=== PATIENT | male | born 1955 | race Caucasian/White ===

== ENCOUNTER → 2022-03-08 | Outpatient (CLI) | payer BC ==
[~2022-03-08] MED LIST: ALPR0.5T6 PO; AMLO-186 PO; ASPI325T8 PO; ATOR40TA59 PO; BUDE10.22 IH; CHOL10004 PO; LISI20TA18 PO; METF500T16 PO
--- NOTE | 2022-03-08 11:32 | CARD ---
MR#: [id number] Date of Study: 03/08/2022 Ordering Physician: RANDY MANZANO, Referring Physician: RANDY MANZANO, Tech: Yeny Guidry [facility] APPROVED REPORT EXAM: Two-dimensional and M-mode echocardiogram with Doppler and color Doppler. Other Information Quality : AverageHR: 54bpm Rhythm : NSR INDICATION Dyspnea Chest Pain 2D DIMENSIONS RVDd2.5 (2.9-3.5cm)Left Atrium(2D)3.9 (1.6-4.0cm) IVSd1.2 (0.7-1.1cm)Aortic Root(2D)2.8 (2.0-3.7cm) LVDd4.3 (3.9-5.9cm)LVOT Diameter2.2 (1.8-2.4cm) PWd1.0 (0.7-1.1cm)LVDs3.0 (2.5-4.0cm) FS (%) 29.6 %SV46.2 ml LVEF(%)57.0 (>50%) Aortic Valve AoV Peak Santino.265.6cm/sAoV VTI64.0cm AO Peak GR.28.2mmHgLVOT Peak Santino.81.4cm/s AO Mean GR.14mmHgAVA (VMAX)1.19cm2 Mitral Valve MV E Gkkdvmrl29.9cm/sMV DECEL [id number] MV A Rfdkowmt00.1cm/sE/A Ratio0.8 Pulmonary Valve PV Peak Aeapahad847.6cm/s Tricuspid Valve TR P. Hqyplzid703ow/sRAP [id number] TR Peak Gr.[id number] LEFT VENTRICLE The left ventricle is normal size. There is mild concentric left ventricular hypertrophy. The left ve ntricle systolic function normal. The ejection fraction estimated at 55 to 60%. No regional wall glenn on abnormalities noted. Transmitral Doppler flow pattern is Grade I-abnormal relaxation pattern. No l eft ventricle thrombus noted on this study. There is no ventricular septal defect visualized. There i s no left ventricular aneurysm. There is no mass noted in the left ventricle. RIGHT VENTRICLE The right ventricle is normal size. There is normal right ventricular wall thickness. The right ventr icular systolic function is normal. ATRIA The left atrium size is normal. The right atrium size is normal. The interatrial septum is intact wit h no evidence for an atrial septal defect or patent foramen ovale as noted on 2-D or Doppler imaging. AORTIC VALVE The aortic valve is trileaflet. The aortic valve is mildly calcified. No aortic regurgitation is pres ent. Calculated aortic valve area is 1.2 cm2 with maximum pressure gradient of 28 mmHg and mean press ure gradient of 14 mmHg. There is mild aortic valvular stenosis. There is no aortic valvular vegetati on. MITRAL VALVE The mitral valve is normal in structure and function. There is no evidence of mitral valve prolapse. There is no mitral valve stenosis. Doppler and Color Flow revealed trace mitral regurgitation. TRICUSPID VALVE The tricuspid valve is normal in structure and function. Doppler and Color Flow revealed trace tricus pid regurgitation. The PA pressure was estimated at 27 mmHg. There is no tricuspid valve prolapse or vegetation. There is no tricuspid valve stenosis. PULMONIC VALVE The pulmonary valve is normal in structure and function. There is no pulmonic valvular regurgitation. There is no pulmonic valvular stenosis. GREAT VESSELS The aortic root is normal in size. The ascending aorta is normal in size. The pulmonary artery is nor mal. The IVC is normal in size and collapses >50% with inspiration. PERICARDIAL EFFUSION There is no pleural effusion. There is no evidence of significant pericardial effusion. Critical Notification Critical Value: No <Conclusion> The left ventricle systolic function normal. The ejection fraction estimated at 55 to 60%. No regional wall motion abnormalities noted. Transmitral Doppler flow pattern is Grade I-abnormal relaxation pattern. There is mild aortic valvular stenosis. Trace mitral regurgitation. Trace tricuspid regurgitation. The PA pressure was estimated at 27 mmHg. There is no evidence of significant pericardial effusion. Signed by : Donell Ordoñez, Electronically Approved : 03/08/2022 11:31:49
== END ==
LOC: ECHO 08:44
PROVIDERS: ATTEND Internal Medicine Cardiovascular Disease
DX: I35.1 Nonrheumatic aortic (valve) insufficiency (principal); I51.7 Cardiomegaly; R06.09 Other forms of dyspnea
CPT/HCPCS: 93306; C8929